=== PATIENT | female | born 1990 | race Caucasian/White ===

== ENCOUNTER 2016-12-05 08:39 | Emergency (ER) | payer SELFPAY ==
[2016-12-05] MEDS ORDERED: Ondansetron HCl/PF 4 MG/2 ML Vial ONE (09:12)
[2016-12-05] MEDS ORDERED: Ketorolac Tromethamine 30 MG/ML VIAL ONE (09:12)
[2016-12-05] MEDS ORDERED: Sodium Chloride 0.9% 0 ML ONE (09:34)
[2016-12-05 09:38] LABS: Bilirubin Negative (Negative); Blood, Urine Trace (Negative); Clarity Clear (Clear); Glucose, Urine (Dipstick) Negative (Negative); Leukocyte Trace (Negative); Nitrite Negative (Negative); Protein, Urine (Dipstick) Negative (Neg-Trace); Urobilinogen 0.2 mg/dL (0.2-1.0)
[2016-12-05 09:42] LABS: #Basophils 0.1 thou/uL (0.0-0.2); #Eosinphils 0.2 thou/uL (0.0-0.7); #Lymphocytes 2.4 thou/uL (1.20-3.40); #Monocytes 0.8 thou/uL (0.11-0.59); %Basophils 1.3 % (0.0-1.0); %Eosinophils 1.8 % (0.0-10.0); %Lymphocytes 28.6 % (21.0-51.0); %Monocytes 8.8 % (0.0-10.0); %Neutrophils 59.4 % (42.0-75.0); Hemoglobin 14.1 g/dL (12.0-16.0); Mean Corpuscular HGB CONC 32.5 g/dL (32.0-36.0); Mean Corpuscular Hemoglobin 29.7 pg (27.0-31.0); Mean Corpuscular Volume 91.5 fl (81.0-99.0); Mean Platelet Volume 6.8 fL (7.4-10.4); Platelet Count 262 thou/uL (130-400); RBC Distribution Width 11.2 % (11.5-14.5); Red Blood Cell (RBC) Count 4.73 mill/uL (4.20-5.40); White Blood Cell (WBC) Count 8.5 thou/uL (4.8-10.8)
[2016-12-05 09:57] LABS: ALT (SGPT) 13 U/L (8-55); AST (SGOT) 11 U/L (5-34); Albumin 3.9 g/dL (3.5-5.0); Alkaline Phosphatase 69 U/L (40-150); Anion Gap 12 mmol/L (10-20); BUN (Urea Nitrogen) 9 mg/dL (7.0-18.7); Bilirubin, Total 0.4 mg/dL (0.2-1.2); Calc. Creatinine Clearance 0 mL/min (70-130); Calcium 9.2 mg/dL (7.8-10.44); Carbon Dioxide 23 mmol/L (22-29); Chloride 108 mmol/L (98-107); Estimated GFR-MDRD Greater than 90; Globulin 2.6 g/dL (2.4-3.5); Glucose 85 mg/dL (70-105); Potassium 3.4 mmol/L (3.5-5.1); Protein, Total 6.5 g/dL (6.0-8.3); Sodium 140 mmol/L (136-145)
[2016-12-05 10:10] LABS: Pregnancy Test - Urine (BHCG) Negative (Negative); Pregu Control Background? CLEAR/WHITE (CLR/WHITE); Pregu Control Bar Appear? YES (CONTROL BAR)
[2016-12-05 10:13] LABS: Bacteria/HPF Rare-Few HPF (None Seen); Other Microscopic Description NO; RBC/HPF 0-3 HPF (0-3); Squamous Epithelial 0-3 HPF (0-3)
[2016-12-05] MEDS ORDERED: Sodium Chloride 0.9% 1,000 ML ONE (12:03)
[2016-12-05] MEDS ORDERED: cefTRIAXone\\ROCEPHIN 1 GM VIAL ONE (12:03)
[2016-12-05] MEDS ORDERED: Sodium Chloride 0.9% 100 ML ONE (12:04)
--- NOTE | 2016-12-05 12:37 | CT ---
CT OF ABDOMEN AND PELVIS PERFORMED WITHOUT CONTRAST ENHANCEMENT: HISTORY: Left-sided abdomen pain. History of tubal and cholecystectomy. FINDINGS: The lung bases are clear. The liver, spleen, and pancreas regions appear unremarkable given limitations of a noncontrast study . The gallbladder has been removed. Right and left adrenal glands and right and left kidneys are normal in size without signs of obstruc tion. The medullary pyramids are slightly hyperdense. There is punctate calcification seen in the lower pole of the right kidney. There are no signs of any ureteral calculus. There is no significa nt periaortic or mesenteric adenopathy seen. No signs of any bowel obstruction. CT OF PELVIS PERFORMED WITHOUT CONTRAST ENHANCEMENT: The appendix is somewhat difficult to visualize but appears to be normal in size. No inflammatory p rocess. No adenopathy or mass. Follicles are seen involving the adnexa. No significant free fluid noted. Review of osseous structures showed no acute findings. IMPRESSION: Slight increased density to the medullary pyramids of both kidneys and a tiny punctate calcification lower pole right kidney. 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 There is no obstruction or ureteral calculi. No acute process within the abdomen or pelvis. POS: [facility]
== END 2016-12-05 13:03 | disposition home or self-care (01) ==
LOC: NAV ERS 08:39
DX: N30.01 Acute cystitis with hematuria (principal); F17.210 Nicotine dependence, cigarettes, uncomplicated
CPT/HCPCS: 74176; 80053; 81003; 81015; 81025; 85025; 96361; 96365; 96375; J0696; J1885; J2270; J2405; J7050

== ENCOUNTER 2018-07-08 15:23 | Emergency (ER) | payer SELFPAY ==
[2018-07-08] MEDS ORDERED: Bupivacaine 0.5% 10 ML VIAL ONE (15:49)
== END 2018-07-08 16:05 | disposition home or self-care (01) ==
LOC: NAV ERS 15:23
DX: K04.7 Periapical abscess without sinus (principal); L03.211 Cellulitis of face; F17.210 Nicotine dependence, cigarettes, uncomplicated
CPT/HCPCS: 64400; J3490

== ENCOUNTER 2020-12-02 15:16 | Emergency (ER) | payer SELFPAY ==
[~2020-12-02 15:16] MED LIST: Iopamidol 370 76% 100 ML VIAL ONE
[2020-12-02 15:57] LABS: Leukocyte Negative (Negative); Nitrite Negative (Negative); pH, Urine 7.5 (5.0-9.0)
[2020-12-02 15:58] LABS: Bilirubin Negative (Negative); Blood, Urine Trace (Negative); Glucose, Urine (Dipstick) Negative (Negative); Ketone, Urine Negative (Negative); Protein, Urine (Dipstick) Trace mg/dL (Neg-Trace)
[2020-12-02 16:05] LABS: Clarity SL HAZY (Clear)
[2020-12-02 16:06] LABS: RBC/HPF 0-3 HPF (0-3); Squamous Epithelial 0-3 HPF (0-3); WBC/HPF 0-3 HPF (0-3)
[2020-12-02 16:07] LABS: Bacteria/HPF 1+ HPF (None Seen)
[2020-12-02] MEDS ORDERED: Ketorolac Tromethamine 30 MG/ML VIAL ONE (16:34)
[2020-12-02] MEDS ORDERED: Morphine 4 MG/ML VIAL ONE ×3 (16:34→20:24)
[2020-12-02] MEDS ORDERED: Ondansetron PF 4 MG/2 ML Vial ONE (16:34)
[2020-12-02 16:40] LABS: #Basophils 0.1 thou/uL (0.0-0.2); #Eosinphils 0.1 thou/uL (0.0-0.7); #Lymphocytes 1.6 thou/uL (1.20-3.40); #Monocytes 0.9 thou/uL (0.11-0.59); #Neutrophils 12.2 thou/uL (1.40-6.50); %Basophils 0.7 % (0.0-1.0); %Eosinophils 0.8 % (0.0-10.0); %Lymphocytes 10.6 % (21.0-51.0); %Monocytes 5.7 % (0.0-10.0); %Neutrophils 82.1 % (42.0-75.0); Hemoglobin 13.2 g/dL (12.0-16.0); Mean Corpuscular HGB CONC 32.5 g/dL (32.0-36.0); Mean Corpuscular Hemoglobin 31.2 pg (27.0-31.0); Mean Corpuscular Volume 95.9 fL (78.0-98.0); Mean Platelet Volume 7.1 fL (7.4-10.4); Platelet Count 267 thou/uL (130-400); Red Blood Cell (RBC) Count 4.24 mill/uL (4.20-5.40); White Blood Cell (WBC) Count 14.9 thou/uL (4.8-10.8)
[2020-12-02 16:59] LABS: ALT (SGPT) 19 U/L (8-55); AST (SGOT) 17 U/L (5-34); Albumin 3.4 g/dL (3.5-5.0); Alkaline Phosphatase 71 U/L (40-110); Anion Gap 11 mmol/L (10-20); BUN (Urea Nitrogen) 10 mg/dL (7.0-18.7); Bilirubin, Total 0.7 mg/dL (0.2-1.2); Calc. Creatinine Clearance 0 mL/min (70-130); Calcium 8.7 mg/dL (7.8-10.44); Carbon Dioxide 21 mmol/L (22-29); Chloride 111 mmol/L (98-107); Globulin 2.6 g/dL (2.4-3.5); Glucose 106 mg/dL (70-105); Lipase 18 U/L (8-78); Potassium 3.4 mmol/L (3.5-5.1); Sodium 140 mmol/L (136-145)
[2020-12-02] MEDS ORDERED: Sodium Chloride 0.9% 1,000 ML ONE (17:38)
[2020-12-02] MEDS ORDERED: Sodium Chloride 0.9% 100 ML ONE (17:43)
[2020-12-02] MEDS ORDERED: Piperacillin/Tazobactam 4.5 GM VIAL ONE (17:43)
[2020-12-02] MEDS ORDERED: Sodium Chloride 0.9% 500 ML ONE (18:18)
== END 2020-12-02 20:30 | disposition short-term general hospital (02) ==
LOC: NAV ERS 15:16
DX: R14.0 Abdominal distension (gaseous) (principal); F17.210 Nicotine dependence, cigarettes, uncomplicated
CPT/HCPCS: 74177; 80053; 81003; 81015; 83690; 85025; 96365; 96367; 96375; 96376; J1885; J2270; J2405; J2543; J3370; J3490; J7030; J7050; Q9967